=== PATIENT | male | born 1960 ===

== ENCOUNTER 2025-06-08 15:08 | Outpatient (AMB) | payer BC, SELFPAY ==
--- NOTE | 2025-06-08 15:18 | A.OFFVIS_ITS ---
Intake Visit Reasons: Follow Up Allergies hydrocodone Allergy (Intermediate, Verified 06/06/25 11:50) Unknown HPI Comments Details: This is a generally healthy 64-year-old man who has had a fairly normal life. As a youngster, he was?physically active and used to do karate and then became a runner, running? 6 miles a day through high school and college. He has?had slightly high arches in his feet and is now concerned whether he has Ftwzytw-Hqdog-Zvppe disease because of a family history of the disorder in his father and brother.? He was not aware of any weakness in his hands till it was pointed out to him that he has some atrophy of the intrinsic hand muscles.? He has also noted that when he walks, he??sometimes catches the front of his left foot. He?has not had any falls.? He remains active and does a lot of yard work. He Is not limited in any way at this point.? He is does not have any significant numbness or pain in his feet. [facility] Medical History (Updated 06/08/25 @ 15:35 by Magda Gunter MD) Charcot Joan Tooth muscular atrophy GERD (gastroesophageal reflux disease) Review of Systems Const Details: Sleep:? Difficulty getting to sleepdenies.? Difficulty maintaining sleepdenies?.? Urge to move legsdenies.? Teeth grindingdenies.? Shouting or Kicking during sleep denies.? Abnormal behavior during sleepdenies.? Excessive sleepdenies.? Snoring denies.? Daytime sleepinessdenies. ???General/Constitutional:? Change in appetitedenies.? Chillsdenies.? Fatiguedenies.? Feverdenies.? Weight gaindenies.? Weight lossdenies. ???Ophthalmologic:? Blurred visiondenies.? Diminished visual acuitydenies. ???ENT:? Stuffinessdenies.? Decreased hearingdenies.? Dry mouthdenies.? Ear paindenies.? Nosebleeddenies.? Ringing in the earsadmits.? Sinus paindenies.? Sore throat denies.? Swollen glandsdenies. ???Endocrine:? Cold intolerancedenies.? Excessive thirstdenies.? Frequent urinationdenies.? Heat intolerancedenies. ???Respiratory:? Shortness of breathdenies.? Chest paindenies.? Coughdenies. ???Breast:? Breast lumpdenies.? Nipple dischargedenies. ???Cardiovascular:? Chest pain at restdenies.? Chest pain with exertiondenies.? Claudicationdenies .? Dizzinessdenies.? Fluid accumulation in the legsdenies.? Irregular heartbeat denies.? Palpitationsdenies. ???Gastrointestinal:? Abdominal paindenies.? Constipationdenies.? Diarrheadenies.? Difficulty swallowingdenies.? Heartburnadmits.? Nauseadenies.? Rectal bleedingdenies. ???Hematology:? Easy bruisingdenies.? Prolonged bleedingdenies. ???Genitourinary:? Frequent urinationdenies.? Urgencydenies.? Incontinencedenies.? Erectile Dysfunctiondenies. ???Musculoskeletal:? Neck paindenies.? Back paindenies.? Muscle achesdenies.? Painful jointsdenies.? Sciaticadenies.? Weaknessdenies. ???Podiatric:? Difficulty walkingdenies.? Foot numbnessdenies. ???Neurologic:? Difficulty swallowingdenies.? Balance difficultydenies.? Coordinationnormal.? Difficulty speakingdenies.? Dizzinessdenies.? Faintingdenies.? Gait abnormality denies.? Headachedenies.? Loss of strengthdenies.? Loss of use of extremity denies.? Low back paindenies.? Memory lossdenies.? Seizuresdenies.? Ticsdenies.? Tingling/Numbnessadmits.? Transient loss of visiondenies.? Tremoradmits. ???Psychiatric:? Anxietydenies.? Auditory/visual hallucinationsdenies.? Delusionsdenies.? Depressed mooddenies.? Stressorsdenies.? Substance abusedenies.? Suicidal thoughtsdenies. Physical Exam Neuro Other: Neurological: Abnormal neurological findings:??atrophy of the intrinsic hand muscles in both hands with weakness of finger spread, abductor pollicis brevis is also weak at to 4/5.? Finger spread is 4 minus/5.? Opposition is 5 minus/5.? Long finger and thumb extensors are 5 minus/5.? Wrist extensors and proximal muscles are very normal.? In the lower extremities there is weakness of dorsiflexion of both ankles at to 4+/5 EDB and EHL of 4 or 5.? Everters of the ankle, 4+/5.? Absent ankle reflexes were 2+ knee jerks.? There is sensory blunting to vibration and pinprick distal to the mid tarsal level.? His arches are slightly high.? He is able to walk on his toes but on his heels he has trouble dorsiflexing the foot resulting in a partial foot drop..?Mental Status:??alert and oriented X 3,?Normal attention, orientation, memory and affect.?Cranial Nerves:??Pupils are equal, round and reactive to light. Fundoscopy shows normal disc bilaterally. External occular muscles are intact. Visual gallagher are full, no ptosis. Face is symmetrical, no facial weakness or droop. Facial sensations are normal. Tongue protrudes in midline. Palate elevates symmetrically. Shoulder shrugging is normal..?Motor Examination:? As above. Deep tendon reflexes are 2+ with absent ankle reflexes , Plantars are flexor.?Straight Leg Raising:??90 degrees.?Sensory Exam:??Distal blunting of pin prick and vibration in LE distal to mid tarsal level. UE Normal light touch, temperature, pinprick, vibration and joint- position sensations?,?Rhomberg sign is absent.?Coordination:??no ataxia,?no titubation,?vrjzit-mj-nfse, luqi-wiwx-xbue test and rapid alternating movements were normal.?Gait Exam:??Within normal limits. Unable to walk on heels with weak dorsiflexion of ankle, right worse than left..?Cerebellar Signs:??Nxlcwo-wn-nvqg and nqog-ef-tomt is normal,?no dysdiadochokinesia?.?Extrapyramidal System:??No tremor, rigidity with normal facial expressions,?No bradykinesia, no bradyphrenia. Normal arm swing and posture. No propulsion or retro pulsion.?Speech:??Normal,?no dysphasia or dysarthria..? Mini Mental Status Exam: Level of Consciousness:??Alert.?Orientation:??Knows correct year, month, date, day and season,?Knows correct city, county and state. Knows correct location and floor.?Registration:??Able to register 3 objects.?Attention:??Serial 7's performed accurately.?Recall:??Able to recall 3 out of 3 objects.?Language:??Normal spontaneous speech, fluency, repetition,naming, comprehension, reading and writing.?Total Score:??.? 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
--- NOTE | 2025-06-08 15:39 | MHC.OFFVIS ---
Intake Visit Reasons: Follow Up Allergies hydrocodone Allergy (Intermediate, Verified 06/06/25 11:50) Unknown HPI Comments Details: This is a generally healthy 64-year-old man who has had a fairly normal life. As a youngster, he was?physically active and used to do karate and then became a runner, running? 6 miles a day through high school and college. He has?had slightly high arches in his feet and is now concerned whether he has Qitmklu-Crlfs-Gswas disease because of a family history of the disorder in his father and brother.? He was not aware of any weakness in his hands till it was pointed out to him that he has some atrophy of the intrinsic hand muscles.? He has also noted that when he walks, he??sometimes catches the front of his left foot. He?has not had any falls.? He remains active and does a lot of yard work. He Is not limited in any way at this point.? He is does not have any significant numbness or pain in his feet. He has been stable with no loss of functional ability [facility] Medical History (Updated 06/08/25 @ 15:37 by Magda Gunter MD) Charcot Joan Tooth muscular atrophy GERD (gastroesophageal reflux disease) Review of Systems Const Details: Sleep:? Difficulty getting to sleepdenies.? Difficulty maintaining sleepdenies?.? Urge to move legsdenies.? Teeth grindingdenies.? Shouting or Kicking during sleepdenies.? Abnormal behavior during sleepdenies.? Excessive sleepdenies.? Snoringdenies.? Daytime sleepinessdenies. ???General/Constitutional:? Change in appetitedenies.? Chillsdenies.? Fatiguedenies.? Feverdenies.? Weight gaindenies.? Weight lossdenies. ???Ophthalmologic:? Blurred visiondenies.? Diminished visual acuitydenies. ???ENT:? Stuffinessdenies.? Decreased hearingdenies.? Dry mouthdenies.? Ear paindenies.? Nosebleeddenies.? Ringing in the earsadmits.? Sinus paindenies.? Sore throatdenies.? Swollen glandsdenies. ???Endocrine:? Cold intolerancedenies.? Excessive thirstdenies.? Frequent urinationdenies.? Heat intolerancedenies. ???Respiratory:? Shortness of breathdenies.? Chest paindenies.? Coughdenies. ???Breast:? Breast lumpdenies.? Nipple dischargedenies. ???Cardiovascular:? Chest pain at restdenies.? Chest pain with exertiondenies.? Claudicationdenies.? Dizzinessdenies.? Fluid accumulation in the legsdenies.? Irregular heartbeatdenies.? Palpitationsdenies. ???Gastrointestinal:? Abdominal paindenies.? Constipationdenies.? Diarrheadenies.? Difficulty swallowingdenies.? Heartburnadmits.? Nauseadenies.? Rectal bleedingdenies. ???Hematology:? Easy bruisingdenies.? Prolonged bleedingdenies. ???Genitourinary:? Frequent urinationdenies.? Urgencydenies.? Incontinencedenies.? Erectile Dysfunctiondenies. ???Musculoskeletal:? Neck paindenies.? Back paindenies.? Muscle achesdenies.? Painful jointsdenies.? Sciaticadenies.? Weaknessdenies. ???Podiatric:? Difficulty walkingdenies.? Foot numbnessdenies. ???Neurologic:? Difficulty swallowingdenies.? Balance difficultydenies.? Coordinationnormal.? Difficulty speakingdenies.? Dizzinessdenies.? Faintingdenies.? Gait abnormalitydenies.? Headachedenies.? Loss of strengthdenies.? Loss of use of extremitydenies.? Low back paindenies.? Memory lossdenies.? Seizuresdenies.? Ticsdenies.? Tingling/Numbnessadmits.? Transient loss of visiondenies.? Tremoradmits. ???Psychiatric:? Anxietydenies.? Auditory/visual hallucinationsdenies.? Delusionsdenies.? Depressed mooddenies.? Stressorsdenies.? Substance abusedenies.? Suicidal thoughtsdenies. Physical Exam Neuro Other: Neurological: Abnormal neurological findings:??atrophy of the intrinsic hand muscles in both hands with weakness of finger spread, abductor pollicis brevis is also weak at to 4/5.? Finger spread is 4 minus/5.? Opposition is 5 minus/5.? Long finger and thumb extensors are 5 minus/5.? Wrist extensors and proximal muscles are very normal.? In the lower extremities there is weakness of dorsiflexion of both ankles at to 4+/5 EDB and EHL of 4 or 5.? Everters of the ankle, 4+/5.? Absent ankle reflexes were 2+ knee jerks.? There is sensory blunting to vibration and pinprick distal to the mid tarsal level.? His arches are slightly high.? He is able to walk on his toes but on his heels he has trouble dorsiflexing the foot resulting in a partial foot drop..?Mental Status:??alert and oriented X 3,?Normal attention, orientation, memory and affect.?Cranial Nerves:??Pupils are equal, round and reactive to light. Fundoscopy shows normal disc bilaterally. External occular muscles are intact. Visual gallagher are full, no ptosis. Face is symmetrical, no facial weakness or droop. Facial sensations are normal. Tongue protrudes in midline. Palate elevates symmetrically. Shoulder shrugging is normal..?Motor Examination:? As above. Deep tendon reflexes are 2+ with absent ankle reflexes , Plantars are flexor.?Straight Leg Raising:??90 degrees.?Sensory Exam:??Distal blunting of pin prick and vibration in LE distal to mid tarsal level. UE Normal light touch, temperature, pinprick, vibration and joint-position sensations?,?Rhomberg sign is absent.?Coordination:??no ataxia,?no titubation,?hlsfbf-ka-flzg, nque-iacr-cynj test and rapid alternating movements were normal.?Gait Exam:??Within normal limits. Unable to walk on heels with weak dorsiflexion of ankle, right worse than left..?Cerebellar Signs:??Lkcegz-nc-zkvj and suus-ot-xwto is normal,?no dysdiadochokinesia?.?Extrapyramidal System:??No tremor, rigidity with normal facial expressions,?No bradykinesia, no bradyphrenia. Normal arm swing and posture. No propulsion or retropulsion.?Speech:??Normal,?no dysphasia or dysarthria..? Mini Mental Status Exam: Level of Consciousness:??Alert.?Orientation:??Knows correct year, month, date, day and season,?Knows correct city, county and state. Knows correct location and floor.?Registration:??Able to register 3 objects.?Attention:??Serial 7's performed accurately.?Recall:??Able to recall 3 out of 3 objects.?Language:??Normal spontaneous speech, fluency, repetition,naming, comprehension, reading and writing.?Total Score:??3030.? 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
--- OUTSIDE RECORDS SUMMARY | 2025-06-08 23:40 | XMS_ITS | Clinical Summary ---
Author Organization [address] [facility] Address [address] [place] [address] Phone Care Team Providers Care Bottling Supervisor Name Role Phone Gunjan Moore MD Primary Care Provider [phone] Allergies Active Allergy Reactions Criticality Noted Date Comments Bee Venom Protein (Honey Bee) Swelling 2024 Hydrocodone Hives 01/27/2019 Nut - Unspecified 05/14/2023 Tongue swelling Shellfish Derived 05/14/2023 Medications EPINEPHrine (EpiPen 2-Vincent) 0.3 mg/0.3 mL injection Inject 0.3 mL (0.3 mg total) into the thigh if needed for anaphylaxis. 01/01/2022 Active omeprazole (PriLOSEC) [address] capsule TAKE 1 CAPSULE BY MOUTH DAILY FOR 360 DAYS. 90 capsule 3 07/12/2024 Active cholecalciferol (Vitamin D3) 50 mcg (2,000 unit) tablet Take 1 tablet (2,000 Units total) by mouth 1 (one) time each day. 90 tablet 1 12/06/2024 06/04/20 25 Active Problems Problem Noted Date Diagnosed Date Family history of Fjlxpvp-Cjgll-Nlpbq disease Allergic rhinitis 09/01/2023 Benign colonic polyp 11/16/2015 Esophageal reflux 11/16/2015 Hyperlipidemia 07/21/2014 Palpitations 07/12/2013 Vascular disorder of skin 06/12/2011 Immunizations Immunization Administration Dates Next Due Influenza, Unspecified 05/05/2023 Surgical History Surgery Date Site/Laterality Comments HERNIA REPAIR PROCEDURE: HISTORICAL HERNIA REPAIR/UMB COLONOSCOPY N/A PROCEDURE: HISTORICAL COLONOSCOPY OTHER SURGICAL HISTORY PROCEDURE: OUTSIDE ENDOSCOPY Medical History Medical History Date Comments Allergic rhinitis DX:Allergic rh initis Dyspepsia DX:Dyspepsia Family History Medical History Relation Name Comments Other: rima smith tooth Brother Coronary artery disease Father Other: sarah abarca tooth Father smoker Father Hypertension Mother Depression Son 1 Other: autism spectrum Son 1 Other: pancreatic cancer Uncle 1 mother side Lung cancer Uncle 2 mother side smoker Uncle 2 mother side Relation Name Status Comments Brother Father (Age 80) Mother (Age 84) Son 1 Alive Son 2 Alive Uncle 1 mother side Uncle 2 mother side Social History Tobacco Use Types Packs/Day Years Used Date Smoking Tobacco: Never Smokeless Tobacco: Never Alcohol Use Standard Drinks/Week Comments Yes 1 (1 standard drink = 0.6 oz pur e alcohol) occ Housing Instability Answer Date Recorde d Are you worried that in the next 2 months you may not have stable housing? No 11/22/2024 Food Access & Nutrition Answer Date Rec orded Do you have access to a vari ety of food including fruits and vegetables? Yes 11/22/2024 Access to Healthcare Answer Date Record ed Within the last 3 months, ho w many times did you visit the emergency department for your medical care? 0 11/22/2024 Health Literacy Answer Date Recorded How often do you need to hav e someone help you when you read instructions, pamphlets, or other written material from your doctor or pharmacy? Never 11/22/2024 Caregiver: How often do you need to have someone help you when you read instructions, pamphlets, or other written material from your doctor or pharmacy? Not on file 11/22/2024 Financial Risk Answer Date Recorded How hard is it for you to pa y for the very basics like food, housing, medical care, and air conditioning / heating? Not very hard 11/22/2024 Transportation Answer Date Recorded Has the lack of transportati on kept you from meetings, work, or from getting things needed for daily living? No Has the lack of transportati on kept you from medical appointments or from getting medications? No 11/22/2024 Social Isolation Answer Date Recorded How often do you feel lonely or isolated from th ose around you? Never 11/22/2024 Food Risk Answer Date Recorded Within the past 12 months we worried whether our food would run out before we got money to buy more. Never true 11/22/2024 Within the past 12 months th e food we bought just didn't last and we didn't have money to get more. Never true 11/22/2024 Dependent Care Answer Date Recorded Do you need help finding or paying for care for your loved ones. For example, childcare worker or elderly care for an older adult? No 11/22/2024 Education Answer Date Recorded Do you think completing more education or training, like finishing a GED, going to college, or learning a trade, would be helpful for you? No 11/22/2024 Employment and Income Answer Date Recor ded During the last four weeks, have you been actively looking for work? No 11/22/2024 Living Situation Answer Date Recorded What is your living situation? Unrecognized valu e 11/22/2024 Education Answer Date Recorded What is the highest level of school you have completed or the highest degree you have received? Bachelor's degree (e.g., BA, AB, BS) 11/29/2024 Sex and Gender Information Value Date Recorded Sex Assigned at Not on file Legal Sex Male 1:28 PM EST Gender Identity Not on file Sexual Orientation Not on file Last Filed Vital Signs Vital Sign Reading Time Taken Comments Blood Pressure 132/86 11/29/2024 3:54 PM EDT Pulse 83 11/29/2024 3:54 PM EDT Temperature 36.6 C (97.8 F) 11/29/2024 3:54 PM EDT Respiratory Rate - - Oxygen Saturation 99% 11/29/2024 3:54 PM EDT Inhaled Oxygen Concentration - - Weight 76.7 kg (169 lb 3.2 oz) 11/29/2024 3:54 P M EDT Height 175.3 cm (5' 9 ) 11/28/2023 11:30 AM EDT Body Mass Index 24.99 11/28/2023 11:30 AM EDT Plan of Treatment Upcoming Encounters Date Type Department Care Team (Late st Contact Info) Description 12/01/2025 10:00 AM EDT Office Visit Internal Medicine - [address] [place] [address] Gunjan Moore MD [facility] [place] [address] Health Maintenance Due Date Last Done Comments DTaP,Tdap,and Td Vaccines (1 - Tdap) 10/27/1978 Pneumococcal Vaccine: 50+ Years (1 of 1 - PCV) 10/27/2009 Zoster Vaccines (1 of 2) 10/27/2009 Hepatitis C Screening 06/09/2022 COVID-19 Vaccine (2 - 2024-2 6 season) 2025 05/19/2021 Influenza Vaccine (#1) 2025 05/05/2023 Social Influencers of Health Screening 11/22/2025 11/22/2024 Falls Risk Assessment 11/29/2025 11/29/2024 Cholesterol Screening (Lipid Panel) 12/03/2029 12/03/2024, 05/21/2023 Colorectal Cancer Screening: Colonoscopy 08/13/2032 08/13/2022 RSV Immunization Adult Patients (1 - 1-dose 75+ series) 10/27/2034 Depression Screening Completed 11/22/2024 HIB Vaccines Aged Out No longer eligi ble based on patient's age to complete this topic HPV Vaccines Aged Out No longer eligi ble based on patient's age to complete this topic Hepatitis A Vaccines Aged Out No long er eligible based on patient's age to complete this topic Hepatitis B Vaccines Aged Out No long er eligible based on patient's age to complete this topic IPV Vaccines Aged Out No longer eligi ble based on patient's age to complete this topic MMR Vaccines Aged Out No longer eligi ble based on patient's age to complete this topic Meningococcal ACWY Vaccine Aged Out N o longer eligible based on patient's age to complete this topic Meningococcal B Vaccine Aged Out No l onger eligible based on patient's age to complete this topic RSV Immunization Patients Under 20 months Aged Out No longer eligible b ased on patient's age to complete this topic Varicella Vaccines Aged Out No longer eligible based on patient's age to complete this topic Procedures Procedure Name Priority Date/Time Associated Diagnosis Comments LIPID PANEL WITH REFLEX TO DIRECT LDL Routine 12/03/2024 7:54 AM EDT Encounter for annual physical exam Mixed hyperlipidemia from Last 3 Months or Most Recently Relevant to Health Maintenance Results * (ABNORMAL) Lipid panel with reflex to direct LDL (12/03/2024 7:54 AM EDT) Cholesterol 213(H) 0 - 200 mg/dL LAB CHEMISTRY METHOD 12/03/2024 1:45 PM EDT [facility] Triglycerides 152(H) 0 - 150 mg/dL LAB CHEMISTRY METHOD 12/03/2024 1:45 PM EDT [facility] HDL 64 >=40 mg/dL LAB CHEMISTRY METHOD 12/03/2024 1:45 PM EDT [facility] LDL Calculated 119(H) 0 - 100 mg/dL LAB CHEMISTRY METHOD 12/03/2024 1:45 PM EDT [facility] VLDL Cholesterol Willie 30.4 mg/dL LAB CHEMISTRY METHOD 12/03/2024 1:45 PM EDT [facility] Non HDL Chol. (LDL+VLDL) 149(H) <145 mg/dL LAB CHEMISTRY METHOD 12/03/2024 1:45 PM EDT [facility] Chol/HDL Ratio 3.3 0.0 - 4.4 LAB CHEMISTRY METHOD 12/03/2024 1:45 PM EDT [facility] Blood Venous blood specimen / Unknown Venipuncture / Unknown 12/03/2024 7:54 AM EDT 12/03/2024 7:54 AM EDT us Gunjan Moore MD LAB BLOOD ORDERABLES Final Resul t [facility] [address] [place] [address], from Last 3 Months or Most Recently Relevant to Health Maintenance Insurance [facility] MEDICARE Care Teams Bottling Supervisor Relationship Specialty Start Date End Date Gunjan Moore MD [address] [place] [phone] PCP - General 03/20/23
== END 2025-06-14 15:34 | disposition home or self-care (01) ==
PROVIDERS: PCP Student in an Organized Health Care Education/Training Program; Visit Provider Psychiatry & Neurology Neurology
DX: G60.0 Hereditary motor and sensory neuropathy (principal)
CPT/HCPCS: 99214